=== PATIENT | female | born 1995 | race Caucasian/White ===

== ENCOUNTER 2018-09-06 01:01 | Outpatient (CLI) | payer MEDICAID ==
[~2018-09-06] VITALS: Ht 167.6 cm; Wt 99.8 kg
[~2018-09-06 01:01] MED LIST: ACET-1718 PO; ACET-1966 PO; ARIP30TA10 PO; DOCU240C67 PO; FERR-53 PO; IBUP800T37 PO; Lanolin TP; MYLAN; ONDA4TAB9 PO; ONDA8TAB94 PO; PREN1TAB29 PO; QUET200T29 PO; SER50 PO; TUCKS TP; birth control pill
[2018-09-06] MEDS ORDERED: LR(*) 1000 ML BAG 1,000 ML IV PRN ×3 (01:03→02:00)
[2018-09-06 01:21] VITALS: BP 143/90; Ht 167.6 cm; Wt 99.8 kg
[2018-09-06] MEDS ORDERED: FLUCONAZOLE 150 MG TAB PO ONE (04:00)
== END 2018-09-06 04:28 | disposition home or self-care (01) ==
LOC: UNDOADMOB 01:01 → L&D 01:01 → OB 01:01 → L&D 04:28 → UNDODISOB 04:28 → EDSTATUS 09-09 08:32
PROVIDERS: ATTEND Obstetrics & Gynecology
DX: O46.92 Antepartum hemorrhage, unspecified, second trimester (principal); Z3A.26 26 weeks gestation of pregnancy
CPT/HCPCS: 81001; 82731; 84112; 87210; G0463; 99213; G0378; G0379